=== PATIENT | male | born 1980 | race Caucasian/White ===

== ENCOUNTER 2025-09-20 21:33 | Emergency (ER) | payer SELFPAY ==
[~2025-09-20] VITALS: Ht 172.7 cm; Wt 86.2 kg
[~2025-09-20 21:33] MED LIST: Bactrim Ds Tab1 EACH PO; CEPH500 PO; CYCL10 PO; HYDACE5 PO; IBUP800 PO; Keflex500 MG PO; SULTRIDS PO
[2025-09-20 21:48] VITALS: BP 146/96
[2025-09-20] MEDS ORDERED: RX Prepack 2 Tabs Ondansetron ODT 4MG UD ONE (21:55)
[2025-09-20] MEDS ORDERED: RX Prepack 6 Tabs Oxycodone 5mg UD ONE (21:55)
[2025-09-20] MEDS ORDERED: NICO21TP TOP (21:59)
[2025-09-20] MEDS ORDERED: PENVK500 PO (21:59)
[2025-09-20] MEDS ORDERED: ONDA4ODT MM (22:00)
[2025-09-20] MEDS ORDERED: OXAYDO5 M1 PO (22:06)
[2025-09-21] MEDS ORDERED: OXAYDO5 M1 PO (20:59)
[2025-09-21] MEDS ORDERED: PENVK500 PO (20:59)
[2025-09-21] MEDS ORDERED: NICO21TP TOP (20:59)
[2025-09-21] MEDS ORDERED: ONDA4ODT MM (20:59)
== END 2025-09-20 23:10 | disposition home or self-care (01) ==
LOC: ER 21:33
DX: K02.9 Dental caries, unspecified (principal); F17.200 Nicotine dependence, unspecified, uncomplicated
CPT/HCPCS: 99282; A9270